=== PATIENT | male | born 1990 | race Caucasian/White ===

== ENCOUNTER 2016-04-04 14:00 | Emergency (ER) | payer OTHER ==
[2016-04-04 14:06] VITALS: BP 148/65; PULSE 64; TEMP 97.7; BMI 30.4
[2016-04-04] MEDS ORDERED: KETOROLAC TROMETHAMINE 60 MG/2 ML VIAL IM ONE (14:39)
[2016-04-04] MEDS ORDERED: diazePAM 5 MG TABLET PO ONE (14:39)
[2016-04-04] MEDS ORDERED: KETOROLAC TROMETHAMINE 60 MG/2 ML VIAL ONE (14:45)
[2016-04-04] MEDS ORDERED: diazePAM 5 MG TABLET ONE (14:46)
--- NOTE | 2016-04-04 14:47 | PDOC ---
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 Patient reports that he feels this pain every day however it has worsened and is currently a 9 out of 10 sharp in nature. Patient reports that intermittently he feels radiation of pain to his right anterior thigh. Patient denies that he has this pain currently. Patient denies any numbness of his legs or any saddle anesthesia or any incontinency. Patient has been taking Tylenol for this pain. 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 ) Modifying Factors: improves with: None Loss of Consciousness: no loss of consciousness Associated Symptoms (Fall): muscle spasms (lower lumbar area) Past History - Past Medical History Allergies/Adverse Reactions: Allergies Allergy/AdvReac Type Severity Reaction Status Date / Time No Known Allergies Allergy Verified 04/04/16 14:02 Home Medications: Ambulatory Orders Cyclobenzaprine HCl [Flexeril -] 10 mg PO Q8H PRN #21 tablet 04/04/16 Naproxen [Naprosyn -] 500 mg PO BID PRN #14 tablet MDD 2 04/04/16 Other medical history: none - Surgical History Appendectomy: Yes - Psycho/Social/Smoking Cessation Hx Anxiety: No Suicidal Ideation: No Smoking History: Never smoked Have you smoked in the past 12 months: Yes Number of Cigarettes Smoked Daily: 5 Information on smoking cessation initiated: Yes Hx Alcohol Use: No Drug/Substance Use Hx: No Substance Use Type: None Review of Systems - Review of Systems Able to Perform ROS?: Yes Constitutional: No: Symptoms Reported HEENTM: No: Symptoms Reported Respiratory: No: Symptoms reported Cardiac (ROS): No: Symptoms Reported ABD/GI: No: Symptoms Reported : No: Symptoms Reported Musculoskeletal: Yes: Back Pain (lumbar b/l back pian ), Muscle Pain (left lateral paraspinal lumbar muscle) Integumentary: No: Symptoms Reported Neurological: Yes: Other (negative SLR ) *Physical Exam - Vital Signs Last Vital Signs Temp Pulse Resp BP Pulse Ox 97.7 F 64 18 148/65 100 04/04/16 14:03 04/04/16 14:03 04/04/16 14:03 04/04/16 14:03 04/04/16 14:03 Medical Decision Making - Medical Decision Making 04/04/16 15:32 04/04/16 15:32 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 Patient reports that he feels this pain every day however it has worsened and is currently a 9 out of 10 sharp in nature. Patient reports that intermittently he feels radiation of pain to his right anterior thigh. Patient denies that he has this pain currently. Patient denies any numbness of his legs or any saddle anesthesia or any incontinency. Patient has been taking Tylenol for this pain. LOWER BACK PAIN WITH MUSCLE SPASM PLAN: XRAY LUMBAR SACRAL lumbarization of the S1 segment. The S 1 segment demonstrates traverse processes with the left one articulating with the remainder of the sacrm. Bases appear intact. There is some loss of the lumbar lordosis which may be related to muscle spasm per . TORADOL 60 MG IM NOW VALIUM 5 MG PO NOW FEELING BETTER WILL DISCHARGE TO HOME ON : NAPROSYN 500 MG BID PRN PAIN # 14 TABS FLEXERIL 10 MMG Q 8 HRS PRN MUSCLE SPASM #21 TABS FOLLOW UP WITH ORTHO 04/04/16 18:13 *DC/Admit/Observation/Transfer Diagnosis at time of Disposition: Low back pain Qualifiers: Chronicity: acute Back pain laterality: left Sciatica presence: without sciatica Qualified Code(s): M54.5 - Low back pain - Discharge Dispostion Disposition: HOME Condition at time of disposition: Stable - Prescriptions Prescriptions: Cyclobenzaprine HCl [Flexeril -] 10 mg PO Q8H PRN #21 tablet PRN Reason: Muscle Spasms Naproxen [Naprosyn -] 500 mg PO BID PRN #14 tablet MDD 2 PRN Reason: Pain - Referrals Referrals: Ap Madden MD [Staff Physician] - - Patient Instructions Additional Instructions: Avoid strenuous activities and lifting when turning while cooking At your job turn your whole torso in the direction you turning do not just turn from the waist Return to emergency room if any numbness of your legs or any loss of control of urination or defecation Follow up with orthopedist as soon as possible for further evaluation Patient voiced understanding of discharge instructions and all questions were answered
== END 2016-04-04 15:41 | disposition home or self-care (01) ==
LOC: JERFT 14:00
PROC: 3E0233Z Introduction of Anti-inflammatory into Muscle, Percutaneous Approach (ICD-10-PCS; principal; 2016-04-04)
DX: M54.5 Low back pain (principal); X50.1XXA Overexertion from prolonged static or awkward postures, initial encounter; Y93.G1 Activity, food preparation and clean up; Y92.511 Restaurant or cafe as the place of occurrence of the external cause; Y99.0 Civilian activity done for income or pay
CPT/HCPCS: 72100-TC; 99281-25

== ENCOUNTER 2017-02-05 12:49 | Emergency (ER) | payer OTHER ==
[2017-02-05 13:08] VITALS: BP 128/85; PULSE 87; TEMP 97.7; BMI 30.4
[2017-02-05] MEDS ORDERED: KETOROLAC TROMETHAMINE 60 MG/2 ML VIAL IM ONE (14:08)
[2017-02-05] MEDS ORDERED: KETOROLAC TROMETHAMINE 60 MG/2 ML VIAL ONE (14:11)
--- NOTE | 2017-02-05 14:14 | PDOC ---
History of Present Illness - General Chief Complaint: Back Pain Stated Complaint: BACK PAIN Time Seen by Provider: 02/05/17 13:46 History Source: Patient Exam Limitations: No Limitations - History of Present Illness Initial Comments: 02/05/17 14:13 26 yr male with history of low back pain 6 months ago , states the past week has low back pain worse with sitting to standing. 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 Pt denies fever no abd pain or chills , pt took ibuprofen 800mg last night with some relief. Pt was seen here 6 months ago for the same. Pt denies urianry or bowel dysfunction 02/05/17 14:17 Past History - Past Medical History Allergies/Adverse Reactions: Allergies Allergy/AdvReac Type Severity Reaction Status Date / Time No Known Allergies Allergy Verified 02/05/17 13:08 Home Medications: Ambulatory Orders Naproxen [Naprosyn -] 500 mg PO BID PRN #30 tablet 02/05/17 Oxycodone HCl/Acetaminophen [Percocet 5-325 mg Tablet] 1 - 2 tab PO Q6H PRN #14 tab MDD 8 tabs 02/05/17 COPD: No Other medical history: NONE - Surgical History Appendectomy: Yes - Suicide/Smoking/Psychosocial Hx Smoking History: Current every day smoker Have you smoked in the past 12 months: Yes Number of Cigarettes Smoked Daily: 3 Information on smoking cessation initiated: Yes 'Breaking Loose' booklet given: 02/05/17 Hx Alcohol Use: Yes (SOCIAL) Drug/Substance Use Hx: No Substance Use Type: None *Physical Exam - Vital Signs Last Vital Signs Temp Pulse Resp BP Pulse Ox 97.7 F 87 20 128/85 96 02/05/17 13:04 02/05/17 13:04 02/05/17 13:04 02/05/17 13:04 02/05/17 13:04 - Physical Exam General Appearance: Yes: Appropriately Dressed HEENT: positive: EOMI, [place] Neck: positive: Supple. negative: Tender Respiratory/Chest: positive: Lungs Clear, Normal Breath Sounds Cardiovascular: positive: Regular Rhythm, Regular Rate Gastrointestinal/Abdominal: positive: Normal Bowel Sounds, Soft. negative: Tender Musculoskeletal: positive: Normal Inspection, Vertebral Tenderness (intact). negative: CVA Tenderness (L) Extremity: positive: Normal Capillary Refill, Normal Inspection, Normal Range of Motion Integumentary: positive: Normal Color, Warm Neurologic: positive: Fully Oriented, Alert, Normal Mood/Affect, Normal Response , Motor Strength 5/5 (SLR positive to the right side at 60 degrees) Medical Decision Making - Medical Decision Making 02/05/17 14:56 cc: low back pain worse since laying tile this week neg saddle anesthesia neg urine or bowel dysfunction neg numbness to the leg pt has no chest pain or shortness of breath will check UA toradol for pain xray reviewed from last visit *DC/Admit/Observation/Transfer Diagnosis at time of Disposition: Low back pain Qualifiers: Chronicity: acute Back pain laterality: midline Sciatica presence: with sciatica Sciatica laterality: sciatica of right side Qualified Code(s): M54.41 - Lumbago with sciatica, right side - Discharge Dispostion Disposition: HOME Condition at time of disposition: Good - Prescriptions Prescriptions: Naproxen [Naprosyn -] 500 mg PO BID PRN #30 tablet PRN Reason: Back Pain Oxycodone HCl/Acetaminophen [Percocet 5-325 mg Tablet] 1 - 2 tab PO Q6H PRN #14 tab MDD 8 tabs PRN Reason: Severe Pain - Referrals Referrals: Nhan Herrera MD [Staff Physician] - Vidal Sorensen MD [Staff Physician] - - Patient Instructions Additional Instructions: avoid heavy lifting or bending wear a back brace/support belt while at work take naprosyn for moderate pain take percocet for severe pain Do not drive, operate machinery or drink alcohol while taking this medication please follow with for follow up return if any worsening symptoms - Post Discharge Activity Forms/Work/School Notes: Back to Work
[2017-02-05 14:30] LABS: URINE APPEARANCE TURBID; URINE BILIRUBIN NEGATIVE (NEGATIVE); URINE BLOOD NEGATIVE (NEGATIVE); URINE COLOR YELLOW; URINE GLUCOSE (UA) NEGATIVE (NEGATIVE); URINE KETONE NEGATIVE (NEGATIVE); URINE LEUK ESTERASE NEGATIVE (NEGATIVE); URINE NITRITE NEGATIVE (NEGATIVE); URINE PROTEIN NEGATIVE (NEGATIVE); URINE UROBILINOGEN NEGATIVE mg/dL (0.2-1.0)
[2017-02-05 20:25] LABS: URINE LEUK ESTERASE Negative (NEGATIVE)
== END 2017-02-05 15:04 | disposition home or self-care (01) ==
LOC: JERFT 12:49
PROC: 3E0233Z Introduction of Anti-inflammatory into Muscle, Percutaneous Approach (ICD-10-PCS; principal; 2017-02-05)
DX: M54.41 Lumbago with sciatica, right side (principal); X50.1XXA Overexertion from prolonged static or awkward postures, initial encounter; Y93.89 Activity, other specified; Y92.89 Other specified places as the place of occurrence of the external cause
CPT/HCPCS: 81003; 99281-25

== ENCOUNTER 2017-12-27 10:44 | Emergency (ER) | payer SELFPAY ==
[2017-12-27 10:48] VITALS: BP 130/64; PULSE 80; TEMP 97.7; BMI 30.2
[2017-12-27] MEDS ORDERED: KETOROLAC TROMETHAMINE 60 MG/2 ML VIAL IM ONE (11:23)
--- NOTE | 2017-12-27 11:27 | PDOC ---
History of Present Illness - General Chief Complaint: Back Pain Stated Complaint: BACK PAIN Time Seen by Provider: 12/27/17 11:14 - History of Present Illness Initial Comments: 12/27/17 11:24 27-year-old male presents for evaluation of lower back pain. He states he was seen in the emergency room multiple times even went to specialist who really didn't help him all that much he continues to have lower back pain without radicular symptoms loss of bowel bladder function or saddle paresthesia Past History - Past Medical History Allergies/Adverse Reactions: Allergies Allergy/AdvReac Type Severity Reaction Status Date / Time No Known Allergies Allergy Verified 12/27/17 10:47 Home Medications: Ambulatory Orders Cyclobenzaprine HCl [Flexeril 10 mg] 10 mg PO HS PRN #10 tablet 12/27/17 Ibuprofen [Motrin -] 600 mg PO TID #30 tablet 12/27/17 COPD: No - Surgical History Appendectomy: Yes - Suicide/Smoking/Psychosocial Hx Smoking History: Never smoked Have you smoked in the past 12 months: Yes Number of Cigarettes Smoked Daily: 3 Information on smoking cessation initiated: No 'Breaking Loose' booklet given: 02/05/17 Hx Alcohol Use: No Drug/Substance Use Hx: No Substance Use Type: None Review of Systems - Review of Systems Musculoskeletal: Yes: Back Pain *Physical Exam - Vital Signs Last Vital Signs Temp Pulse Resp BP Pulse Ox 97.7 F 80 18 130/64 100 12/27/17 10:45 12/27/17 10:45 12/27/17 10:45 12/27/17 10:45 12/27/17 10:45 - Physical Exam Comments: 12/27/17 11:25 Lumbar spine skin color and temperature are normal range of motion is slightly decreased. There is tenderness about the right left paralumbar musculature. No midline tenderness. 5 out of 5 strength in bilateral lower extremities without gross sensorimotor deficits negative straight leg raise test bilaterally Medical Decision Making - Medical Decision Making 12/27/17 11:25 Lower back pain. I'll treat his pain in the emergency room with Toradol motion Flexeril for home use and have him follow-up with orthopedic spine surgery *DC/Admit/Observation/Transfer Diagnosis at time of Disposition: Low back pain - Discharge Dispostion Disposition: HOME Condition at time of disposition: Stable Decision to Admit order: No - Prescriptions Prescriptions: Cyclobenzaprine HCl [Flexeril 10 mg] 10 mg PO HS PRN #10 tablet PRN Reason: Muscle Spasms Ibuprofen [Motrin -] 600 mg PO TID #30 tablet - Referrals Referrals: Ap Grajeda MD [Staff Physician] - - Patient Instructions Printed Discharge Instructions: Low Back Pain, DI for Low Back Pain Additional Instructions: Regrese a la siobhan de emergencias si los sntomas empeoran o no se resuelven. Realice un seguimiento con ciruga ortopdica de la columna vertebral en 2-3 sawyer para sharee evaluacin adicional y opciones de tratamiento. Los antiinflamatorios de sharee tableta 3 veces al da con alimentos interrumpen la medicacin en el estmago. Los relajantes musculares sharee tableta antes de acostarse y te darn sueo return to the emergency room should symptoms worsen or go unresolved. Please follow-up with orthopedic spine surgery in 2-3 days for further evaluation and treatment options. The anti-inflammatories one tablet 3 times a day with food discontinue the medication at the bothers her stomach. The muscle relaxers one tablet before bedtime and will make you sleepy Print Language: [place] R[place] - Post Discharge Activity
[2017-12-27] MEDS ORDERED: KETOROLAC TROMETHAMINE 60 MG/2 ML VIAL ONE (11:29)
== END 2017-12-27 11:41 | disposition home or self-care (01) ==
LOC: JERFT 10:44
PROC: 3E0233Z Introduction of Anti-inflammatory into Muscle, Percutaneous Approach (ICD-10-PCS; principal; 2017-12-27)
DX: M54.5 Low back pain (principal)
CPT/HCPCS: 99281-25

== ENCOUNTER 2018-04-09 22:50 | Emergency (ER) | payer SELFPAY ==
[2018-04-09 23:17] VITALS: BP 138/84; PULSE 88; TEMP 97.2; BMI 27.3
--- NOTE | 2018-04-09 23:35 | PDOC ---
History of Present Illness - General Chief Complaint: Palpitations Stated Complaint: CHEST PAINS Time Seen by Provider: 04/09/18 23:15 History Source: Patient - History of Present Illness Initial Comments: 04/09/18 23:38 27-year-old male complains of palpitation after drinking large size REDBULL. Patient denies chest pain, nausea, vomiting, diarrhea, abdominal pain, dizziness. Patient is currently asymptomatic. 04/10/18 06:55 Past History - Past Medical History Allergies/Adverse Reactions: Allergies Allergy/AdvReac Type Severity Reaction Status Date / Time No Known Allergies Allergy Verified 04/09/18 23:25 Home Medications: Ambulatory Orders NK [No Known Home Medication] 04/09/18 Anemia: No Asthma: No Cancer: No Cardiac Disorders: No CVA: No COPD: No - Surgical History Appendectomy: Yes Cholecystectomy: No GI Surgery: Yes (a/p) - Suicide/Smoking/Psychosocial Hx Smoking History: Never smoked Have you smoked in the past 12 months: No Number of Cigarettes Smoked Daily: 3 Information on smoking cessation initiated: No 'Breaking Loose' booklet given: 02/05/17 Hx Alcohol Use: No Drug/Substance Use Hx: No Substance Use Type: None Cardiac Specific PMH - Complaint Specific PMHX Myocardial Infarction: No Review of Systems - Review of Systems Able to Perform ROS?: Yes Is the patient limited Lithuanian proficient: No Constitutional: No: Symptoms Reported, See HPI, Chills, Diaphoresis, Fever, Loss of Appetite, Malaise, Night Sweats, Weakness, Weight Stable, Unintentional Wgt. Loss, Unexplained wgt Loss, Other HEENTM: No: Symptoms Reported, See HPI, Eye Pain, Blurred Vision, Tearing, Recent change in vision, Double Vision, Cataracts, Ear Pain, Ocular Prothesis, Ear Discharge, Nose Pain, Nose Congestion, Tinnitus, Nose Bleeding, Hearing Loss , Throat Pain, Throat Swelling, Mouth Pain, Dental Problems, Difficulty Swallowing, Mouth Swelling, Other Respiratory: No: Symptoms reported, See HPI, Cough, Orthopnea, Shortness of Breath, SOB with Exertion, SOB at Rest, Stridor, Wheezing, Productive cough, Hemoptysis, Other *Physical Exam - Vital Signs Last Vital Signs Temp Pulse Resp BP Pulse Ox 97.2 F L 88 20 138/84 97 04/09/18 22:54 04/09/18 22:54 04/09/18 22:54 04/09/18 22:54 04/09/18 22:54 - Physical Exam General Appearance: Yes: Appropriately Dressed Respiratory/Chest: positive: Lungs Clear, Normal Breath Sounds. negative: Chest Tender Cardiovascular: positive: Regular Rhythm, Regular Rate Integumentary: positive: Normal Color, Dry, Warm Heart Score/ECG Review - ECG Intrepretation Rhythm: Regular Rhythm Comment:: 04/09/18 23:39 sinus rhythm with sinus arrhythmia 70 bpm Moderate Sedation - Procedure Monitoring Vital Signs: Procedure Monitoring Vital Signs Temperature 97.2 F L 04/09/18 22:54 Pulse Rate 88 04/09/18 22:54 Respiratory Rate 20 04/09/18 22:54 Blood Pressure 138/84 04/09/18 22:54 O2 Sat by Pulse Oximetry (%) 97 04/09/18 22:54 Medical Decision Making - Medical Decision Making Palpitations P: EKG reduced caffeine intake discussed and close PCP follow up return precautions reviewed with patient *DC/Admit/Observation/Transfer Diagnosis at time of Disposition: Palpitations - Discharge Dispostion Disposition: HOME - Referrals - Patient Instructions Printed Discharge Instructions: DI for Palpitations Additional Instructions: Avoid caffeinated beverage. Drink plenty of fluids Follow-up with your doctor. - Post Discharge Activity Forms/Work/School Notes: Back to Work
--- NOTE | 2018-04-10 11:53 | EKG ---
Test Reason : Blood Pressure : / mmHG Vent. Rate : 070 BPM Atrial Rate : 070 BPM P-R Int : 170 ms QRS Dur : 094 ms QT Int : 370 ms P-R-T Axes : 047 083 062 degrees QTc Int : 399 ms NORMAL SINUS RHYTHM WITH SINUS ARRHYTHMIA NORMAL ECG NO PREVIOUS ECGS AVAILABLE Confirmed by MD EMELY, JOSÉ MIGUEL ([id number]) on 04/10/2018 11:53:03 AM Referred By: Confirmed By:JOSÉ MIGUEL HAN MD
== END 2018-04-09 23:47 | disposition home or self-care (01) ==
LOC: JER 22:50
DX: R00.2 Palpitations (principal)
CPT/HCPCS: 93005; 93010; 99283-25